=== PATIENT | male | born 1985 | race African-American/Black ===

== ENCOUNTER 2018-09-01 17:10 | Emergency (ER) | payer SELFPAY ==
[~2018-09-01] VITALS: Ht 170.2 cm; Wt 68.2 kg
[2018-09-01] MEDS ORDERED: IBUPROFEN 800 MG TABLET PO ONE (17:45)
[2018-09-01 19:17] VITALS: BP 141/84
== END 2018-09-01 19:26 | disposition home or self-care (01) ==
LOC: EMS 17:11
DX: S92.351A Displaced fracture of fifth metatarsal bone, right foot, initial encounter for closed fracture (principal); F17.210 Nicotine dependence, cigarettes, uncomplicated; F12.90 Cannabis use, unspecified, uncomplicated; W10.8XXA Fall (on) (from) other stairs and steps, initial encounter; Y93.89 Activity, other specified; Y92.89 Other specified places as the place of occurrence of the external cause; Y99.8 Other external cause status
CPT/HCPCS: 29515; 99284

== ENCOUNTER 2022-07-28 16:23 | Emergency (ER) | payer MEDICAID, OTHER ==
[~2022-07-28] VITALS: Ht 170.2 cm; Wt 72.7 kg
[2022-07-28] MEDS ORDERED: BACITRACIN 28 GM OINTMENT TP ONE (17:45)
[2022-07-28] MEDS ORDERED: LIDOCAINE 1%/EPI 1:200,000/PF 30 ML VIAL SQ ONE (17:45)
[2022-07-28] MEDS ORDERED: DOXYCYCLINE HYCLATE 100 MG TABLET PO ONE (17:45)
[2022-07-28] MEDS ORDERED: DOXY-354 PO (18:08)
[2022-07-28 18:26] VITALS: BP 140/97
== END 2022-07-28 18:32 | disposition home or self-care (01) ==
LOC: EMS 16:25
DX: L02.811 Cutaneous abscess of head [any part, except face] (principal); R00.0 Tachycardia, unspecified
CPT/HCPCS: 99283; 10060; J3490

== ENCOUNTER 2022-09-12 09:55 | Emergency (ER) | payer MEDICAID ==
[~2022-09-12] VITALS: Ht 170.2 cm; Wt 69.5 kg
[~2022-09-12 09:55] MED LIST: DOXY-354 PO
[2022-09-12 10:30] LABS: COVID AG,FIA SOURCE NASAL SWAB
[2022-09-12 10:36] VITALS: BP 132/93
[2022-09-12 10:39] LABS: INFLUENZA TYPE A NEGATIVE FOR TYPE A (NEGATIVE); INFLUENZA TYPE B NEGATIVE FOR TYPE B (NEGATIVE)
[2022-09-12] MEDS ORDERED: ALBUTEROL SULFATE 2.5 MG/0.5 ML NEB SOLUTION NEB ONE (11:00)
[2022-09-12] MEDS ORDERED: IPRATROPIUM BROMIDE 0.5 MG/2.5 ML NEB SOLUTION NEB ONE (11:00)
[2022-09-12] MEDS ORDERED: AZIT250T9 PO (12:02)
== END 2022-09-12 12:09 | disposition home or self-care (01) ==
LOC: EMS 09:57
DX: J98.01 Acute bronchospasm (principal); R50.9 Fever, unspecified; Z87.891 Personal history of nicotine dependence; Z20.822 Contact with and (suspected) exposure to COVID-19
CPT/HCPCS: 71045; 87804; 94640; 99284; J7613